=== PATIENT | female | born 1990 | race African-American/Black ===

== ENCOUNTER 2016-10-29 13:18 | Emergency (ER) | payer MEDICAID, OTHER ==
[~2016-10-29] VITALS: Ht 177.8 cm; Wt 77.0 kg
[~2016-10-29 13:18] MED LIST: FERR1TAB25 PO; FOLI0.4T2 PO; IRON-15 PO; PREN-142 PO
[2016-10-29] MEDS ORDERED: HYDROCODONE/ACETAMINOPHEN 5/325MG TABLET PO ONE (17:15)
[2016-10-29 18:25] VITALS: BP 120/64
== END 2016-10-29 18:36 | disposition home or self-care (01) ==
LOC: ER 13:18
DX: S10.93XA Contusion of unspecified part of neck, initial encounter (principal); S30.0XXA Contusion of lower back and pelvis, initial encounter; B37.9 Candidiasis, unspecified; V43.52XA Car driver injured in collision with other type car in traffic accident, initial encounter; Y93.89 Activity, other specified; Y92.89 Other specified places as the place of occurrence of the external cause; Y99.8 Other external cause status
CPT/HCPCS: 81025; 99283; Z7610